=== PATIENT | female | born 2000 | race Caucasian/White ===

== ENCOUNTER 2021-01-08 07:55 | Emergency (ER) | payer BC, OTHER ==
[~2021-01-08] VITALS: Ht 175.2 cm; Wt 113.6 kg
[2021-01-08 08:17] LABS: BILIRUBIN,URINE NEGATIVE (NEGATIVE); CLARITY,URINE CLEAR; COLOR,URINE YELLOW; GLUCOSE, URINE (UA) NEGATIVE (NEGATIVE); KETONES,URINE NEGATIVE (NEGATIVE); LEUKOCYTE ESTERASE ,URINE NEGATIVE (NEGATIVE); NITRITE,URINE NEGATIVE (NEGATIVE); PH,URINE 5.5 (5-9); PROTEIN,URINE NEGATIVE (NEGATIVE)
[2021-01-08 08:19] LABS: BACTERIA,URINE NEGATIVE /HPF; SQUAMOUS EPITHELIAL CELL,UR 0-2 /HPF
[2021-01-08] MEDS ORDERED: LACTATED RINGERS 1,000 ML IV ONE (08:30)
[2021-01-08] MEDS ORDERED: fentaNYL INJ 100 MCG/2 ML AMP IVP ONE (08:45)
[2021-01-08] MEDS ORDERED: ONDANSETRON 4 MG/2 ML (SDV) Z0FRAN IVP ONE (08:45)
[2021-01-08 08:51] LABS: BASOPHILS # (AUTO) 0.1 10^3/uL (0.0-0.1); BASOPHILS % (AUTO) 1 % (0-10); EOSINOPHILS # (AUTO) 0.4 10^3/uL (0.0-0.3); EOSINOPHILS % (AUTO) 4 % (0-10); HEMATOCRIT 42 % (35-52); HEMOGLOBIN 14.1 g/dL (11.5-16.0); LYMPHOCYTES # (AUTO) 2.7 10^3/uL (1.0-4.0); LYMPHOCYTES % (AUTO) 26 % (12-44); MEAN CORPUSCULAR HEMOGLOBIN 29 pg (25-34); MEAN CORPUSCULAR HGB CONC 34 g/dL (32-36); MEAN CORPUSCULAR VOLUME 87 fL (80-99); MEAN PLATELET VOLUME 10.7 fL (9.0-12.2); MONOCYTES # (AUTO) 0.8 10^3/uL (0.0-1.0); MONOCYTES % (AUTO) 8 % (0-12); NEUTROPHILS # (AUTO) 6.2 10^3/uL (1.8-7.8); NEUTROPHILS % (AUTO) 61 % (42-75); PLATELET COUNT 328 10^3/uL (130-400); WHITE BLOOD COUNT 10.2 10^3/uL (4.3-11.0)
--- NOTE | 2021-01-08 08:52 | ED Abdominal Pain ---
General Chief Complaint: Abdominal/GI Problems Stated Complaint: ABD PAIN Nursing Triage Note: AMB TO ROOM C/O LOW ABD PAIN ONSET 3 DAYS AGO. FOR APX 1 MONTH HAS NOTICED BLOOD I HER STOOL. APX 1TO 2 YEARS AGO HAD COLONSOCOPY AT [facility] WAS TOLD SHE HAD ULCERATIVE COLITIS WAS TO FOLLOW UP BUT NEVER DID. Sepsis Screen: No Definite Risk Source of Information: Patient Exam Limitations: No Limitations (DINORAHJangl SMS) History of Present Illness Date Seen by Provider: Jan 08, 2021 Time Seen by Provider: 08:35 Initial Comments Jeremias is a 20 y/o female that present to ER via private vehicle due to 4 days of increased abdominal pain. She states the abdominal pain is dull to sharp, 4/10 and located in the lower abdomen L>R. She was dx with ulcerative colitis at [place] 2 years ago and did not follow up. She recalls being prescribed enemas for the colitis, but no longer is taking. HX of constipation. She states since her dx she has had intermittent abdominal pain that was managed with Tylenol, NSAIDS and hydrocodone. She has had blood in her stool for the last two years but has noticed an increased amount starting 2 weeks ago. She has no radiation of pain. Positive for nausea and one episode of vomiting. Denies dizziness, SOB, Chest pain, dysuria, and F/C at this time. No surgical hx. Mother was dx with Crohns in her 20s. She does not see a PCP and is currently not being treated for any other medical conditions. She has not had anything to eat or drink today. Timing/Duration: 1/2 Hour Severity/Quality: Mild Location: RLQ, LLQ Radiation: No Radiation Activities at Onset: None Associated Symptoms: Nausea/Vomiting ([facility] Allergies and Home Medications Allergies Coded Allergies: No Known Drug Allergies (Unverified , 01/08/21) Home Medications Mesalamine 4 Gm/60 Ml Enema, 4 GM RC HS Prescribed by: THONY CHAPA on 01/08/21 1024 Ondansetron 4 Mg Tab.rapdis, 4 MG PO Q6H PRN for NAUSEA/VOMITING Prescribed by: THONY CHAPA on 01/08/21 1024 Patient Home Medication List Home Medication List Reviewed: Yes (THONY CHAPA) Review of Systems Review of Systems Constitutional: no symptoms reported EENTM: No Symptoms Reported Respiratory: No Symptoms Reported Cardiovascular: No Symptoms Reported Gastrointestinal: Abdominal Pain, Blood Streaked Stools, Nausea, Rectal Bleeding, Vomiting Genitourinary: No Symptoms Reported Musculoskeletal: no symptoms reported Skin: no symptoms reported Psychiatric/Neurological: No Symptoms Reported Endocrine: No Symptoms Reported Hematologic/Lymphatic: No Symptoms Reported (DINORAH,[facility] [employer]) Past Ybawwul-Woxbfg-Mszwuz Hx Patient Social History Alcohol Use: Denies Use Smoking Status: Current Everyday Smoker Type Used: Electronic/Vapor Recent Infectious Disease Expo: No (DINORAH,[facility] [employer]) Past Medical History Surgeries: No Respiratory: No Cardiac: No Neurological: No Genitourinary: No Gastrointestinal: Yes Colitis Musculoskeletal: No Endocrine: No HEENT: No Cancer: No Psychosocial: No Integumentary: No (DINORAH,[facility]) Physical Exam Vital Signs Vital Signs - First Documented 01/08/21 07:59 Temp 36.4 Pulse 88 Resp 18 B/P (MAP) 143/100 (114) Pulse Ox 99 O2 Delivery Room Air (THONY CHAPA) Vital Signs Capillary Refill : Less Than 3 Seconds (DINORAH,[facility]) Height/Weight/BMI Height: '" Weight: lbs. oz. kg; 37.00 BMI Method: General Appearance: mild distress Neck: non-tender, full range of motion Respiratory: chest non-tender, no respiratory distress, no accessory muscle use Cardiovascular: normal peripheral pulses, regular rate, rhythm Peripheral Pulses: 2+ Radial Pulses (R), 2+ Radial Pulses (L) Gastrointestinal: soft; No distended, No guarding; tenderness (LLQ and RLQ, L >R) Extremities: no pedal edema, no calf tenderness Neurologic/Psychiatric: alert, oriented x 3 Skin: normal color Exam Comments Negative for [employer] punch. Tenderness to LLQ and RLQ with light and deep palpation. (DINORAH,[facility] [employer]) Progress/Results/Core Measures Results/Orders Lab Results Laboratory Tests Test 01/08/21 08:04 01/08/21 08:42 Range/Units Urine Color YELLOW Urine Clarity CLEAR Urine pH 5.5 5-9 Urine Specific [place] 1.025 H 1.016-1.022 Urine Protein NEGATIVE NEGATIVE Urine Glucose (UA) NEGATIVE NEGATIVE Urine Ketones NEGATIVE NEGATIVE Urine Nitrite NEGATIVE NEGATIVE Urine Bilirubin NEGATIVE NEGATIVE Urine Urobilinogen 0.2 < = 1.0 MG/DL Urine Leukocyte Esterase NEGATIVE NEGATIVE Urine RBC (Auto) NEGATIVE NEGATIVE Urine RBC NONE /HPF Urine WBC NONE /HPF Urine Squamous Epithelial Cells 0-2 /HPF Urine Crystals NONE /LPF Urine Bacteria NEGATIVE /HPF Urine Casts NONE /LPF Urine Mucus NEGATIVE /LPF Urine Culture Indicated NO White Blood Count 10.2 4.3-11.0 10^3/uL Red Blood Count 4.81 3.80-5.11 10^6/uL Hemoglobin 14.1 11.5-16.0 g/dL Hematocrit 42 35-52 % Mean Corpuscular Volume 87 80-99 fL Mean Corpuscular Hemoglobin 29 25-34 pg Mean Corpuscular Hemoglobin Concent 34 32-36 g/dL Red Cell Distribution Width 12.9 10.0-14.5 % Platelet Count 328 130-400 10^3/uL Mean Platelet Volume 10.7 9.0-12.2 fL Immature Granulocyte % (Auto) 0 % Neutrophils (%) (Auto) 61 42-75 % Lymphocytes (%) (Auto) 26 12-44 % Monocytes (%) (Auto) 8 0-12 % Eosinophils (%) (Auto) 4 0-10 % Basophils (%) (Auto) 1 0-10 % Neutrophils # (Auto) 6.2 1.8-7.8 10^3/uL Lymphocytes # (Auto) 2.7 1.0-4.0 10^3/uL Monocytes # (Auto) 0.8 0.0-1.0 10^3/uL Eosinophils # (Auto) 0.4 H 0.0-0.3 10^3/uL Basophils # (Auto) 0.1 0.0-0.1 10^3/uL Immature Granulocyte # (Auto) 0.0 0.0-0.1 10^3/uL Sodium Level 139 135-145 MMOL/L Potassium Level 4.0 3.6-5.0 MMOL/L Chloride Level 105 98-107 MMOL/L Carbon Dioxide Level 24 21-32 MMOL/L Anion Gap 10 5-14 MMOL/L Blood Urea Nitrogen 13 7-18 MG/DL Creatinine 0.76 0.60-1.30 MG/DL Estimat Glomerular Filtration Rate > 60 BUN/Creatinine Ratio 17 Glucose Level 98 70-105 MG/DL Calcium Level 9.5 8.5-10.1 MG/DL Corrected Calcium 9.6 8.5-10.1 MG/DL Total Bilirubin 0.8 0.1-1.0 MG/DL Aspartate Amino Transf (AST/SGOT) 21 5-34 U/L Alanine Aminotransferase (ALT/SGPT) 23 0-55 U/L Alkaline Phosphatase 60 40-136 U/L C-Reactive Protein High Sensitivity 0.56 H 0.00-0.50 MG/DL Total Protein 7.5 6.4-8.2 GM/DL Albumin 3.9 3.2-4.5 GM/DL Lipase 38 8-78 U/L (THONY CHAPA) My Orders Orders - THONY CHAPA Ua Culture If Indicated (01/08/21 07:57) Urine Bedside (01/08/21 07:57) Cbc With Automated Diff (01/08/21 08:27) Comprehensive Metabolic Panel (01/08/21 08:27) Hs C Reactive Protein (01/08/21 08:27) Lipase (01/08/21 08:27) Ed Iv/Invasive Line Start (01/08/21 08:27) Lactated Ringers (Lr 1000 Ml Iv Solution (01/08/21 08:30) Ct Abdomen/Pelvis W (01/08/21 08:36) Fentanyl Inj (Sublimaze Injection) (01/08/21 08:45) Ondansetron Injection (Zofran Injectio (01/08/21 08:45) Iohexol Injection (Omnipaque 350 Mg/Ml 1 (01/08/21 09:00) Received Contrast (Hold Metformin- Contr (01/08/21 09:00) Sodium Chloride Flush (Catheter Flush Sy (01/08/21 09:00) Ns (Ivpb) (Sodium Chloride 0.9% Ivpb Bag (01/08/21 09:00) (THONY CHAPA) Medications Given in ED Current Medications Medications Dose Ordered Sig/Ariane Route Start Time Stop Time Status Last Admin Dose Admin Fentanyl Citrate 50 mcg ONCE ONCE IVP 01/08/21 08:45 01/08/21 08:46 DC 01/08/21 08:46 50 MCG Iohexol 100 ml ONCE ONCE IV 01/08/21 09:00 01/08/21 09:06 DC 01/08/21 09:37 100 ML Lactated Ringer's 1,000 ml @ 0 mls/hr Q0M ONCE IV 01/08/21 08:30 01/08/21 08:31 DC 01/08/21 08:41 1,000 MLS/HR Ondansetron HCl 4 mg ONCE ONCE IVP 01/08/21 08:45 01/08/21 08:46 DC 01/08/21 08:45 4 MG Sodium Chloride 10 ml NEEDED PRN IV 01/08/21 09:00 01/08/21 10:53 DC 01/08/21 09:37 10 ML Sodium Chloride 100 ml ONCE ONCE IV 01/08/21 09:00 01/08/21 09:06 DC 01/08/21 09:37 80 ML (THONY CHAPA) Vital Signs/I&O 01/08/21 01/08/21 07:59 10:30 Temp 36.4 Pulse 88 72 Resp 18 18 B/P (MAP) 143/100 (114) 120/66 Pulse Ox 99 94 O2 Delivery Room Air Room Air (THONY CHAPA) Blood Pressure Mean: 114 Progress Progress Note : Time: 08:35 Progress Note CBC, CMP, Lipase, UA, B-HCG, and will obtain a CT of the abdomen and Pelvis. Start IV fluids, fentanyl for pain and Zofran for nausea. Ddx colitis, perforation, colon cancer, pathology. Once labs and imaging are done will ree valuate patient and determine next steps in management. ([facility]) Progress Note #1: Progress Note I attest that I saw this patient alongside the medical student and agree with his documented history, physical exam and review of systems except as otherwise noted. Plan to get a CT of the abdomen to rule out significant surgical disease. Her labs look fine there is no anemia and her urine is fine. If there is no evidence of anything surgical then we will plan to put her on mesalamine Progress Note #2: Time: 10:22 Progress Note Proctitis but likely related to her ulcerative colitis. Plan to put her on mesalamine enemas and follow-up with the glass enamel mixer with some nausea medicine and return precautions. Patient is okay with this plan (THONY CHAPA) Diagnostic Imaging Diagonstic Imaging: CT Plain Films/CT/US/NM/MRI: abdomen, pelvis Comments [facility]. [place], [place] NAME: JEREMIAS NG [facility] REC#: [id number] PT STATUS: REG ER : 2000 PHYSICIAN: THONY CHAPA MD ADMIT DATE: 01/08/21/ER Draft Date of Exam:01/08/21 CT ABDOMEN/PELVIS W EXAMINATION: CT Abdomen and Pelvis with intravenous contrast. TECHNIQUE: Multiple contiguous axial images were obtained through the abdomen and pelvis after the uneventful administration of intravenous contrast. All CT scans use one or more of the following dose optimizing techniques: automated exposure control, MA and/or KvP adjustment based on a patient size and exam type, or iterative reconstruction. HISTORY: Ulcerative colitis, bloody stool. COMPARISON: None available. FINDINGS: Limited views of the lower thorax are unremarkable. The liver is normal without focal lesion. There is no biliary ductal dilation. Gallbladder is normal. Pancreas is normal. Spleen is normal. Adrenal glands are normal. The kidneys are normal. There is no hydronephrosis. Urinary bladder is normal. Uterus and ovaries are normal for age. Visualized bowel is normal in caliber without obstruction or inflammation. No bowel wall thickening or pericolonic stranding. No abscess. No free fluid or air. No abdominal or pelvic lymphadenopathy. Aorta is normal in caliber without aneurysm. There are no suspicious osseus lesions. IMPRESSION: No acute abnormality in the abdomen or pelvis. Dictated on workstation # [id number] Dict: 01/08/21 0941 Trans: 01/08/21 0944 [id number] Interpreted by: LINDA SPENCER MD Electronically signed by: Reviewed: Reviewed by Me (THONY CHAPA) Consults : Consulting Physician: BETY BROWER DO Consults Notes Dr. Brower, general surgery reviewed imaging with us and agrees the rectum does seem to be inflamed although there is no evidence of abscess, fistula or other surgical intervention indicated. He agrees with mesalamine and follow-up with gastroenterology (THONY CHAPA) Departure Impression Primary Impression: Ulcerative colitis confined to rectum Disposition: 01 HOME, SELF-CARE Condition: Stable Departure-Patient Inst. Decision time for Depature: 09:54 (THONY CHAPA) Referrals: NO,LOCAL PHYSICIAN (PCP/Family) Primary Care Physician Patient Instructions: Diet for Ulcerative Colitis, Ulcerative Colitis (DC) Add. Discharge Instructions: Avoid NSAIDs such as Motrin, ibuprofen, Advil, Aleve, naproxen/Naprosyn. Tylenol 1000 mg every 8 hours as necessary for pain. Zofran 1 tablet under the tongue every 6 hours as necessary for nausea or vomiting. Mesalamine enema placed rectally and held overnight at least 8 hours every day. Once your symptoms are under control you can do the enema every 3 days for maintenance. Call your glass enamel mixer and make a follow-up appointment in the next 2 to 4 weeks. Return to the ER for significantly intractable pain, nausea or other worrisome symptoms. All discharge instructions reviewed with patient and/or family. Voiced understanding. Scripts Ondansetron (Ondansetron Odt) 4 Mg Tab.rapdis 4 MG PO Q6H PRN for NAUSEA/VOMITING, #12 TAB 0 Refills Prov: THONY CHAPA 01/08/21 Mesalamine (Mesalamine) 4 Gm/60 Ml Enema 4 GM RC HS for 14 Days, #14 EA 0 Refills Prov: THONY CHAPA 01/08/21 Work/School Note: Work Release Form Date Seen in the Emergency Department: Jan 08, 2021 Return to Work: Jan 10, 2021 [facility] Jan 08, 2021 08:52 THONY CHAPA Jan 08, 2021 09:18
[2021-01-08 08:57] LABS: ALBUMIN 3.9 GM/DL (3.2-4.5); CHLORIDE 105 MMOL/L (98-107); SODIUM 139 MMOL/L (135-145)
[2021-01-08 08:58] LABS: CALCIUM 9.5 MG/DL (8.5-10.1)
[2021-01-08 08:59] LABS: GLUCOSE 98 MG/DL (70-105); TOTAL PROTEIN 7.5 GM/DL (6.4-8.2)
[2021-01-08 09:00] LABS: CARBON DIOXIDE 24 MMOL/L (21-32)
[2021-01-08] MEDS ORDERED: CATHETER FLUSH 10 ML SYR IV PRN (09:00)
[2021-01-08] MEDS ORDERED: HOLD METFORMIN - RECEIVED CONTRAST 20 ML VIAL IV SCH (09:00)
[2021-01-08] MEDS ORDERED: NS 100 ML (IVPB) BAG IV ONE (09:00)
[2021-01-08] MEDS ORDERED: IOHEXOL 350 MG/ML 100 ML (OMNIPAQUE 350) VIAL IV ONE (09:00)
[2021-01-08 09:01] LABS: BILIRUBIN,TOTAL 0.8 MG/DL (0.1-1.0)
[2021-01-08 09:03] LABS: ALKALINE PHOSPHATASE 60 U/L (40-136); CREATININE SERUM 0.76 MG/DL (0.60-1.30); GFR ESTIMATED > 60
[2021-01-08 09:04] LABS: BUN/CREATININE RATIO 17
[2021-01-08 09:06] LABS: ALANINE AMINOTRANSFERASE 23 U/L (0-55); LIPASE 38 U/L (8-78)
--- NOTE | 2021-01-08 09:45 | Diagnostic Imaging Report ---
EXAMINATION: CT Abdomen and Pelvis with intravenous contrast. TECHNIQUE: Multiple contiguous axial images were obtained through the abdomen and pelvis after the uneventful administration of intravenous contrast. All CT scans use one or more of the following dose optimizing techniques: automated exposure control, MA and/or KvP adjustment based on a patient size and exam type, or iterative reconstruction. HISTORY: Ulcerative colitis, bloody stool. COMPARISON: None available. FINDINGS: Limited views of the lower thorax are unremarkable. The liver is normal without focal lesion. There is no biliary ductal dilation. Gallbladder is normal. Pancreas is normal. Spleen is normal. Adrenal glands are normal. The kidneys are normal. There is no hydronephrosis. Urinary bladder is normal. Uterus and ovaries are normal for age. Visualized bowel is normal in caliber without obstruction or inflammation. No bowel wall thickening or pericolonic stranding. No abscess. No free fluid or air. No abdominal or pelvic lymphadenopathy. Aorta is normal in caliber without aneurysm. There are no suspicious osseus lesions. IMPRESSION: No acute abnormality in the abdomen or pelvis. Dictated by: Dictated on workstation # [id number]
[2021-01-08] MEDS ORDERED: ONDA4TAB11 PO (10:24)
[2021-01-08] MEDS ORDERED: MESA4ENE4 RC (10:24)
[2021-01-08 10:30] VITALS: BP 120/66
== END 2021-01-08 10:30 | disposition home or self-care (01) ==
LOC: ER 07:59
DX: K51.80 Other ulcerative colitis without complications (principal); F17.290 Nicotine dependence, other tobacco product, uncomplicated
CPT/HCPCS: 36415; 74177; 80053; 81000; 83690; 84703; 85025; 86141

== ENCOUNTER 2021-03-08 05:31 | Outpatient (RCR) | payer BC, OTHER ==
[~2021-03-08] VITALS: Ht 175.3 cm; Wt 104.0 kg
[~2021-03-08 05:31] MED LIST: ACHD5005 PO; MESA4ENE4 RC; ONDA4TAB11 PO; PANT40GR PO
== END 2021-03-08 13:05 | disposition home or self-care (01) ==
LOC: PREOP 05:31
PROVIDERS: ATTEND Surgery
DX: Z01.812 Encounter for preprocedural laboratory examination (principal); K92.1 Melena; Z20.822 Contact with and (suspected) exposure to COVID-19
CPT/HCPCS: 87635

== ENCOUNTER 2021-03-12 11:55 | Day surgery (SDC) | payer BC, OTHER ==
[~2021-03-12] VITALS: Ht 175 cm; Wt 141.0 kg
[2021-03-12] MEDS ORDERED: LACTATED RINGERS 1,000 ML IV STA (12:09)
[2021-03-12] MEDS ORDERED: LACTATED RINGERS 1,000 ML IV ONE (12:14)
[2021-03-12 12:15] VITALS: BP 110/66
[2021-03-12] MEDS ORDERED: HURRICAINE EXT TUBE (BENZOCAINE) XX PRN (12:15)
--- NOTE | 2021-03-12 12:22 | Progress Note-Pre Operative ---
Pre-Operative Progress Note H&P Reviewed The H&P was reviewed, patient examined and no changes noted. Time Seen by Provider: 12:20 Date H&P Reviewed: Mar 12, 2021 Time H&P Reviewed: 12:20 Pre-Operative Diagnosis: blood in stool, hematemesis BETY BROWER DO Mar 12, 2021 12:22
[2021-03-12] MEDS ORDERED: MIDAZOLAM 2 MG/2 ML (VERSED) VIAL ONE (12:48)
[2021-03-12] MEDS ORDERED: PROPOFOL INJECTION 50 ML IV ONE ×2 (12:48→12:59)
[2021-03-12 13:20] VITALS: BP 101/59
[2021-03-12 13:25] VITALS: BP 107/64
--- NOTE | 2021-03-12 13:29 | Progress Note-Post Operative ---
Post-Operative Progess Note Surgeon (s)/Payroll And Benefits Manager (s) Surgeon BETY BROWER DO Payroll And Benefits Manager: none Pre-Operative Diagnosis blood in stool, hematemesis Post-Operative Diagnosis Gastritis polyp rectal ulcer int hemorrhoids Procedure & Operative Findings Date of Procedure 03/12/21 Procedure Performed/Findings 1. EGD with bx 2. Colon with snare 3. Colon with cold bx PROCEDURE NOTE: After informed consent was obtained, the patient was brought to the endoscopy suite, placed in bed in left lateral decubitus position. She was administered IV sedation by the RAMP LEAD who then monitored her vitals the entire time, heart rate, blood pressure and pulse ox, started with the EGD, placed the scope down the mouth through the esophagus into the stomach, noted some mild Gastritis, took a picture, pushed into the duodenum. Duodenum looked normal. Pulled back and did a biopsy of the antrum as well as biopsy of body of stomach, retroflexed the scope. She did not have a hiatal hernia; pulled the scope into the GE junction, did a biopsy here and then pushed the scope back into the stomach and suctioned all the air out, then pulled the scope up the esophagus and out the mouth. Switched camera, switched gloves, went down below, started the colonoscopy. Pushed all the way to the cecum about 150 cm in, took a picture of the appendiceal orifice and noted the ileo-cecal valve. Then slowly withdrew the scope i nsufflating to look circumferentially at the lind looking at the cecum, up the ascending colon too the hepatic flexure, down the transverse colon, to the splenic flexure, into the descending colon down into the sigmoid and finally into the rectum. Saw a polyp in the rectum and did a snare polypectomy; to remove it completely. On the way in in the rectum saw an ulcer and had taken a picture of it. Elected to do cold biopsies of the edge of the ulcer. I did not want to make the ulcer worse; therefore, I did not retroflex in the rectal vault, but I was able to see some minimal internal hemorrhoids and took a picture. Then removed the scope. The patient tolerated the procedure. She was recovered in endoscopy suite. Anesthesia Type IV sedation by RAMP LEAD Estimated Blood Loss Estimated blood loss (mL): scant Specimens/Packing Specimens Removed antral bx body of stomach bx GE jxn bx rectal polyp rectal ulcer bx BETY BROWER DO Mar 12, 2021 13:29
[2021-03-12 13:30] VITALS: BP 109/66
--- NOTE | 2021-03-12 13:30 | Endoscopy Discharge Instruct ---
Endo Procedure/Findings Findings 1.: Gastritis 2.: Polyp 3.: Other Findings (Rectal ulcer) 4.: Internal Hemorrhoids Discharge Instructions - Activity: You might feel a little sleepy until tomorrow. This is due to the medicine you received to relax you. Until tomorrow, you should: NOT drive a car, operate machinery or power tools. NOT drink any alcoholic beverages. NOT make any important decisions or sign importortant papers. Do not return to work until tomorrow, unless otherwise instructed. Resume previous activities tomorrow. Diet: Start by taking liquids. If you tolerate liquids, advance to solid food. 1.: EGD in 3 years 2.: Other Recommendation (Colon in 6 months) Notify Physician - If you experience excessive bleeding, unusual abdominal pain, fever, or chest pain, contact your doctor immediately. BETY BROWER DO Mar 12, 2021 13:30
--- NOTE | 2021-03-12 13:32 | Anesthesia-General Post-Op ---
MAC Patient Condition Mental Status/LOC: Same as Preop Cardiovascular: Satisfactory Nausea/Vomiting: Absent Respiratory: Satisfactory Pain: Controlled Complications: Absent Post Op Complications Complications None Follow Up Care/Instructions Patient Instructions None needed. Anesthesiology Discharge Order Discharge Order Patient is doing well, no complaints, stable vital signs, no apparent adverse anesthesia problems. No complications reported per nursing. FIOR MELENDEZ CRNA Mar 12, 2021 13:32
[2021-03-12 13:35] VITALS: BP 109/66
[2021-03-12 14:12] VITALS: BP 110/65
== END 2021-03-12 14:25 | disposition home or self-care (01) ==
LOC: ENDO 11:55
PROVIDERS: ATTEND Surgery
DX: K92.1 Melena (principal); K29.50 Unspecified chronic gastritis without bleeding; K92.0 Hematemesis; K64.8 Other hemorrhoids; K62.6 Ulcer of anus and rectum; E66.01 Morbid (severe) obesity due to excess calories; Z68.42 Body mass index [BMI] 45.0-49.9, adult; Z79.899 Other long term (current) drug therapy
CPT/HCPCS: 84703; 88305

== ENCOUNTER 2021-12-19 08:06 | Emergency (ER) | payer OTHER ==
[~2021-12-19] VITALS: Ht 175 cm; Wt 122.0 kg
--- NOTE | 2021-12-19 08:43 | ED Abdominal Pain ---
General Chief Complaint: Abdominal/GI Problems Stated Complaint: ABD PAIN - BLOOD IN STOOL Nursing Triage Note: PT AMB TO RM 7 W CO OF ABD PAIN, SHARP PAIN STARTED THIS AM, STATES HAD DIARRHEA, THEN HAD BLOOD IN STOOL, PT STATES HAS HX ULCERATIE COLOITIS. PT STATES LAST FLARE UP 2-3 MONTHS AGO. PT RATES PAIN 5/10. PT CO OF NAUSEA AT THIS X Source of Information: Patient Exam Limitations: No Limitations (RAGINI GLYNN MED STUDENT) History of Present Illness Date Seen by Provider: Dec 19, 2021 Time Seen by Provider: 08:25 Initial Comments Mrs. Renteria is a 21yo female with PMH of UC that presents to ED today due to abdominal pain and blood in her stool. Her UC is followed by Dr. Brower and her last colonoscopy was about a year ago. She is due for another one in a couple of months. Woke up this morning with sharp stomach pain. Rates about a 4 or 5 right now. Located in the LLQ, there is some milder pain in the suprapubic area as well. She had a bout of diarrhea shortly after wakening with this pain. After this, she had the urge to have another bowel movement but it was just blood, states she has episodes like this but this is more blood than usual. Last UC flar was 2-3 months ago. She does not take any medication for UC, has not taken any medications today. She is also feeling nauseas and a bit lightheaded. Denies fever, chills, dysuria, or any other symptoms. (RAGINI GLYNN MED STUDENT) Initial Comments Jennifer is not on any maintenance medications for her ulcerative colitis. She has not treated any of her prior flares with steroids or antibiotics. She was supposed to follow-up with Dr. Brower for gallbladder ultrasound and further consultation after endoscopy. She did not follow through because of loss of insurance. (ABISAI GRANADOS MD) Allergies and Home Medications Allergies Coded Allergies: No Known Drug Allergies (Unverified , 01/08/21) Patient Home Medication List Home Medication List Reviewed: Yes (ABISAI GRANADOS MD) Hydrocodone/Acetaminophen (Hydrocodone-Acetamin 5-325 mg) 1 Each Tablet, 1 TAB PO Q4H PRN for PAIN-MODERATE (5-7) Prescribed by: ABISAI PERDOMO on 12/19/21 1100 Omeprazole (Omeprazole) 20 Mg Tablet.dr, 20 MG PO DAILY Prescribed by: ABISAI PERDOMO on 12/19/21 105 Ondansetron (Ondansetron Odt) 4 Mg Tab.rapdis, 4 MG SL Q4H PRN for NAUSEA/VOMITING Prescribed by: ABISAI PERDOMO on 12/19/21 1059 Prednisone (Prednisone) 10 Mg Tab.ds.pk, 1 TAB PO UD Prescribed by: ABISAI PERDOMO on 12/19/21 1059 Review of Systems Review of Systems Constitutional: No chills, No fever EENTM: No Blurred Vision, No Double Vision Respiratory: Denies Cough, Denies Shortness of Air, Denies Wheezing Cardiovascular: Denies Chest Pain; Lightheadedness; Denies Palpitations Gastrointestinal: Abdominal Pain (LLQ, superpubic); Denies Constipated; Diarrhea, Nausea, Rectal Bleeding; Denies Vomiting Genitourinary: Denies Burning, Denies Flank Pain, Denies Hematuria Musculoskeletal: No joint pain, No joint swelling Skin: No lesions, No rash Psychiatric/Neurological: Denies Headache, Denies Numbness (RAGINI GLYNN eFuneral STUDENT) Past [id number] Hx Patient Social History Use of E-Cig and/or Vaping dev: Yes E-Cig or Vaping type used: Nicotine Use of E-Cig and/or Vaping Melo: Current Everyday User Substance use?: No Alcohol Use?: No Pt feels they are or have been: No (RAGINI GLYNN eFuneral STUDENT) Seasonal Allergies Seasonal Allergies: No (RAGINI GLYNN STUDENT) Past Medical History Surgeries: No (WISDOM TEETH CHILD.) Respiratory: No Cardiac: No Neurological: No Expected Date of Delivery: Nov 19, 2021 Female Reproductive Disorders: Denies Sexually Transmitted Disease: No HIV/AIDS: No Genitourinary: No Gastrointestinal: Yes Colitis Musculoskeletal: No Endocrine: No HEENT: No Cancer: No Psychosocial: No Integumentary: No (RAGINI GLYNN eFuneral STUDENT) Physical Exam Vital Signs Vital Signs - First Documented 12/19/21 12/19/21 08:20 11:11 Pulse 77 Resp 18 B/P (MAP) 139/74 (95) Pulse Ox 98 O2 Delivery Room Air (ABISAI GRANADOS MD) Vital Signs Capillary Refill : (RAGINI GLYNN MED STUDENT) Height/Weight/BMI Height: '" Weight: lbs. oz. kg; 39.00 BMI Method: General Appearance: WD/WN, no apparent distress, obese HEENT: PERRL/EOMI, pharynx normal Respiratory: chest non-tender, lungs clear, normal breath sounds Cardiovascular: normal peripheral pulses, regular rate, rhythm, no edema, no murmur Peripheral Pulses: 2+ Radial Pulses (R), 2+ Radial Pulses (L) Gastrointestinal: normal bowel sounds, soft, tenderness (LLQ, Superpubic) Extremities: non-tender, no pedal edema, no calf tenderness Neurologic/Psychiatric: alert, normal mood/affect, oriented x 3 Skin: normal color, warm/dry (RAGINI GLYNN MED STUDENT) Progress/Results/Core Measures Results/Orders Lab Results Laboratory Tests Test 12/19/21 08:23 12/19/21 08:37 Range/Units Urine Color YELLOW Urine Clarity CLEAR Urine pH 5.5 5-9 Urine Specific [place] 1.020 1.016-1.022 Urine Protein NEGATIVE NEGATIVE Urine Glucose (UA) NEGATIVE NEGATIVE Urine Ketones NEGATIVE NEGATIVE Urine Nitrite NEGATIVE NEGATIVE Urine Bilirubin NEGATIVE NEGATIVE Urine Urobilinogen 0.2 < = 1.0 MG/DL Urine Leukocyte Esterase NEGATIVE NEGATIVE Urine RBC (Auto) 2+ H NEGATIVE Urine RBC 0-2 /HPF Urine WBC NONE /HPF Urine Squamous Epithelial Cells 0-2 /HPF Urine Crystals NONE /LPF Urine Bacteria NEGATIVE /HPF Urine Casts NONE /LPF Urine Mucus NEGATIVE /LPF Urine Culture Indicated NO White Blood Count 9.1 4.3-11.0 10^3/uL Red Blood Count 5.07 3.80-5.11 10^6/uL Hemoglobin 14.6 11.5-16.0 g/dL Hematocrit 43 35-52 % Mean Corpuscular Volume 85 80-99 fL Mean Corpuscular Hemoglobin 29 25-34 pg Mean Corpuscular Hemoglobin Concent 34 32-36 g/dL Red Cell Distribution Width 13.3 10.0-14.5 % Platelet Count 339 130-400 10^3/uL Mean Platelet Volume 10.9 9.0-12.2 fL Immature Granulocyte % (Auto) 0 % Neutrophils (%) (Auto) 64 42-75 % Lymphocytes (%) (Auto) 27 12-44 % Monocytes (%) (Auto) 7 0-12 % Eosinophils (%) (Auto) 2 0-10 % Basophils (%) (Auto) 1 0-10 % Neutrophils # (Auto) 5.8 1.8-7.8 10^3/uL Lymphocytes # (Auto) 2.4 1.0-4.0 10^3/uL Monocytes # (Auto) 0.6 0.0-1.0 10^3/uL Eosinophils # (Auto) 0.2 0.0-0.3 10^3/uL Basophils # (Auto) 0.1 0.0-0.1 10^3/uL Immature Granulocyte # (Auto) 0.0 0.0-0.1 10^3/uL Erythrocyte Sedimentation Rate 17 0-20 MM/HR Sodium Level 141 135-145 MMOL/L Potassium Level 4.0 3.6-5.0 MMOL/L Chloride Level 106 98-107 MMOL/L Carbon Dioxide Level 20 L 21-32 MMOL/L Anion Gap 15 H 5-14 MMOL/L Blood Urea Nitrogen 8 7-18 MG/DL Creatinine 0.80 0.60-1.30 MG/DL Estimat Glomerular Filtration Rate 107 BUN/Creatinine Ratio 10 Glucose Level 99 70-105 MG/DL Calcium Level 9.5 8.5-10.1 MG/DL Corrected Calcium 9.6 8.5-10.1 MG/DL Magnesium Level 1.8 1.6-2.4 MG/DL Total Bilirubin 0.7 0.1-1.0 MG/DL Aspartate Amino Transf (AST/SGOT) 18 5-34 U/L Alanine Aminotransferase (ALT/SGPT) 25 0-55 U/L Alkaline Phosphatase 65 40-136 U/L C-Reactive Protein High Sensitivity 0.87 H 0.00-0.50 MG/DL Total Protein 7.9 6.4-8.2 GM/DL Albumin 3.9 3.2-4.5 GM/DL Lipase 28 8-78 U/L Serum Test, Qualitative NEGATIVE NEGATIVE (ABISAI GRANADOS MD) My Orders Orders - ABISAI GRANADOS MD Cbc With Automated Diff (12/19/21 08:39) Comprehensive Metabolic Panel (12/19/21 08:39) Hs C Reactive Protein (12/19/21 08:39) Hcg,Qualitative Serum (12/19/21 08:39) Magnesium (12/19/21 08:39) Erythrocyte Sedimentation Rate (12/19/21 08:39) Ed Iv/Invasive Line Start (12/19/21 08:39) Lactated Ringers (Lr 1000 Ml Iv Solution (12/19/21 08:45) Ondansetron Injection (Zofran Injectio (12/19/21 08:45) Promethazine Injection (Phenergan Injec (12/19/21 09:45) Fentanyl Inj (Sublimaze Injection) (12/19/21 09:45) Lipase (12/19/21 09:37) Ua Culture If Indicated (12/19/21 10:04) Hydrocodone/Apap 5/325 Tablet (Lortab 5 (12/19/21 11:00) (ABISAI GRANADOS MD) Medications Given in ED Current Medications Medications Dose Ordered Sig/Ariane Route Start Time Stop Time Status Last Admin Dose Admin Acetaminophen/ Hydrocodone Bitart 1 ea ONCE ONCE PO 12/19/21 11:00 12/19/21 11:01 DC 12/19/21 11:06 1 EA Fentanyl Citrate 50 mcg ONCE ONCE IVP 12/19/21 09:45 12/19/21 09:46 DC 12/19/21 09:45 50 MCG Lactated Ringer's 1,000 ml @ 0 mls/hr Q0M ONCE IV 12/19/21 08:45 12/19/21 08:46 DC 12/19/21 08:49 1,000 MLS/HR Ondansetron HCl 8 mg ONCE ONCE IVP 12/19/21 08:45 12/19/21 08:46 DC 12/19/21 08:49 8 MG Promethazine HCl 25 mg ONCE ONCE IVP 12/19/21 09:45 12/19/21 09:46 DC 12/19/21 09:44 25 MG (ABISAI GRANADOS MD) Vital Signs/I&O 12/19/21 12/19/21 08:20 11:11 Pulse 77 Resp 18 B/P (MAP) 139/74 (95) 115/68 Pulse Ox 98 O2 Delivery Room Air (ABISAI GRANADOS MD) Blood Pressure Mean: 95 Progress Progress Note : Progress Note Patient was hydrated with LR and treated with Zofran. She had refractory nausea and was treated with promethazine. Pain was treated with fentanyl. Labs were relatively unremarkable. I discussed the situation with Dr. Brower who recommended a month-long steroid taper. He advised her to follow-up in his clinic on Friday. He plans to refer to her gastroenterology for maintenance management of ulcerative colitis. (ABISAI GRANADOS MD) Departure Impression Primary Impression: Exacerbation of ulcerative colitis Qualified Codes: K51.919 - Ulcerative colitis, unspecified with unspecified complications Additional Impressions: Nausea & vomiting Qualified Codes: R11.2 - Nausea with vomiting, unspecified Hematochezia Disposition: HOME, SELF-CARE Condition: Improved Departure-Patient Inst. Decision time for Depature: 10:50 (ABISAI GRANADOS MD) Referrals: [facility] (PCP/Family) Primary Care Physician BETY BROWER DO Patient Instructions: Diet for Ulcerative Colitis, Ulcerative Colitis in Adults Add. Discharge Instructions: Start with a clear liquid diet and adhere to clear liquids for the remainder of today. Tomorrow you may gradually advance your diet with small quantities of bland food as tolerated. Additional information on diet for ulcerative colitis patients is attached. Please review the attached educational material. Use hydrocodone as prescribed for pain. Avoid use of NSAID medications such as Aleve, naproxen, Motrin, ibuprofen, etc. Avoid driving, use of machinery, or making important decisions while on hydrocodone. If you become constipated on hydrocodone, use a stool softener such as Colace. Use the prednisone taper as prescribed for treatment of the ulcerative colitis flare. Take prednisone early in the day to avoid sleep disturbance. Take with some food on your stomach if possible to avoid stomach irritation. May also be elena to take an antacid medication such as omeprazole to help protect your stomach while on steroids. Use the Zofran (ondansetron) as prescribed for nausea vomiting. Use Phenergan (promethazine) as previously prescribed for a backup nausea medication. Follow-up with Dr. Brower next week. Please call his office today to schedule an appointment. Please also schedule a follow-up appointment at [facility] or with the primary care provider of your choice. You should discuss referral to gastroenterology versus maintenance therapy of ulcerative colitis through your primary care provider. Call with questions or concerns. Return to the ER if you are having worsening symptoms. All discharge instructions reviewed with patient and/or family. Voiced u nderstanding. Scripts Omeprazole (Omeprazole) 20 Mg Tablet.dr 20 MG PO DAILY, #30 TAB Prov: ABISAI GRANADOS MD 12/19/21 Ondansetron (Ondansetron Odt) 4 Mg Tab.rapdis 4 MG SL Q4H PRN for NAUSEA/VOMITING, #10 TAB 1 Refill Prov: ABISAI GRANADOS MD 12/19/21 Hydrocodone/Acetaminophen (Hydrocodone-Acetamin 5-325 mg) 1 Each Tablet 1 TAB PO Q4H PRN for PAIN-MODERATE (5-7), #20 TAB Prov: ABISAI GRANADOS MD 12/19/21 Prednisone (Prednisone) 10 Mg Tab.ds.pk 1 TAB PO UD, #70 TAB 4 tablets daily for 1 week, then 3 tabs daily for 1 week, then 2 tabs daily for 1 week, then 1 tab daily for 1 week Prov: ABISAI GRANADOS MD 12/19/21 Medical Student Attestation and Attending Note: I have personally interviewed and examined this patient along with Ragini Glynn, MS 4. I have reviewed student documentation including history, physical, and assessments. I agree with the documentation except where otherwise noted. Exam: General: Alert, oriented, uncomfortable, well developed HEENT: Normocephalic and atraumatic Heart: Regular rate and rhythm without murmur Lungs: Clear to auscultation bilaterally with normal effort Abdomen: Soft, generalized tenderness throughout, nondistended, normal bowel sounds Neuropsych: Alert, oriented, no focal deficits Skin: Warm and dry without rashes (ABISAI GRANADOS MD) Copy Copies To 1: BETY BROWER DEREK MED STUDENT Dec 19, 2021 08:43 ABISAI GRANADOS MD Dec 19, 2021 10:51
[2021-12-19 08:45] LABS: BASOPHILS # (AUTO) 0.1 10^3/uL (0.0-0.1); BASOPHILS % (AUTO) 1 % (0-10); EOSINOPHILS # (AUTO) 0.2 10^3/uL (0.0-0.3); EOSINOPHILS % (AUTO) 2 % (0-10); HEMATOCRIT 43 % (35-52); HEMOGLOBIN 14.6 g/dL (11.5-16.0); LYMPHOCYTES # (AUTO) 2.4 10^3/uL (1.0-4.0); LYMPHOCYTES % (AUTO) 27 % (12-44); MEAN CORPUSCULAR HEMOGLOBIN 29 pg (25-34); MEAN CORPUSCULAR HGB CONC 34 g/dL (32-36); MEAN CORPUSCULAR VOLUME 85 fL (80-99); MEAN PLATELET VOLUME 10.9 fL (9.0-12.2); MONOCYTES # (AUTO) 0.6 10^3/uL (0.0-1.0); MONOCYTES % (AUTO) 7 % (0-12); NEUTROPHILS # (AUTO) 5.8 10^3/uL (1.8-7.8); NEUTROPHILS % (AUTO) 64 % (42-75); PLATELET COUNT 339 10^3/uL (130-400); WHITE BLOOD COUNT 9.1 10^3/uL (4.3-11.0)
[2021-12-19] MEDS ORDERED: ONDANSETRON 4 MG/2 ML (SDV) Z0FRAN IVP ONE (08:45)
[2021-12-19] MEDS ORDERED: LACTATED RINGERS 1,000 ML IV ONE (08:45)
[2021-12-19 08:58] LABS: ALBUMIN 3.9 GM/DL (3.2-4.5)
[2021-12-19 09:00] LABS: CALCIUM 9.5 MG/DL (8.5-10.1)
[2021-12-19 09:01] LABS: TOTAL PROTEIN 7.9 GM/DL (6.4-8.2)
[2021-12-19 09:02] LABS: BILIRUBIN,TOTAL 0.7 MG/DL (0.1-1.0)
[2021-12-19 09:04] LABS: CREATININE SERUM 0.8 MG/DL (0.60-1.30)
[2021-12-19 09:07] LABS: MAGNESIUM 1.8 MG/DL (1.6-2.4)
[2021-12-19 09:39] LABS: ERYTHROCYTE SEDIMENTATION RATE 17 MM/HR (0-20)
[2021-12-19] MEDS ORDERED: fentaNYL INJ 100 MCG/2 ML AMP IVP ONE (09:45)
[2021-12-19] MEDS ORDERED: PROMETHAZINE INJ 25 MG/ML (PHENERGAN) AMP IVP ONE (09:45)
[2021-12-19 10:13] LABS: BILIRUBIN,URINE NEGATIVE (NEGATIVE); CLARITY,URINE CLEAR; COLOR,URINE YELLOW; GLUCOSE, URINE (UA) NEGATIVE (NEGATIVE); KETONES,URINE NEGATIVE (NEGATIVE); LEUKOCYTE ESTERASE ,URINE NEGATIVE (NEGATIVE); NITRITE,URINE NEGATIVE (NEGATIVE); PH,URINE 5.5 (5-9); PROTEIN,URINE NEGATIVE (NEGATIVE)
[2021-12-19 10:49] LABS: BACTERIA,URINE NEGATIVE /HPF; RBC,URINE 0-2 /HPF; SQUAMOUS EPITHELIAL CELL,UR 0-2 /HPF
[2021-12-19] MEDS ORDERED: ACHD5005 PO (10:59)
[2021-12-19] MEDS ORDERED: ONDA4TAB11 SL (10:59)
[2021-12-19] MEDS ORDERED: OMEP20TA7 PO (10:59)
[2021-12-19] MEDS ORDERED: PRED10TA22 PO (10:59)
[2021-12-19] MEDS ORDERED: HYDROcodone/APAP 5 MG/325 MG (LORTAB) TAB PO ONE (11:00)
[2021-12-19 11:11] VITALS: BP 115/68
== END 2021-12-19 11:11 | disposition home or self-care (01) ==
LOC: EDUNIT# 08:06 → ER 08:07
DX: K51.90 Ulcerative colitis, unspecified, without complications (principal); R11.2 Nausea with vomiting, unspecified; K92.1 Melena; E66.9 Obesity, unspecified; F17.290 Nicotine dependence, other tobacco product, uncomplicated; Z68.39 Body mass index [BMI] 39.0-39.9, adult
CPT/HCPCS: 36415; 80053; 81000; 83690; 83735; 84703; 85025; 85652; 86141

== ENCOUNTER → 2021-12-31 | Outpatient (CLI) | payer OTHER ==
[~2021-12-31] MED LIST changes: +OMEP20TA7 PO; +ONDA4TAB11 SL; +PRED10TA22 PO
--- NOTE | 2021-12-31 09:57 | Diagnostic Imaging Report ---
PROCEDURE: US Gallbladder. TECHNIQUE: Multiple real-time grayscale images were obtained over the right upper quadrant in various projections. INDICATION: Epigastric pain. Liver is enlarged 18.6 cm. The portal vein is patent and shows normal direction of flow. No discrete liver mass is detected. Gallbladder is without stones or sludge. No wall thickening or biliary duct dilatation is seen. The pancreas was poorly visualized due to overlying bowel gas. Aorta is nonaneurysmal. IVC is patent. The right kidney is without calculi or hydronephrosis. There is no ascites. IMPRESSION: 1. Mild hepatomegaly. 2. No evidence of cholelithiasis or acute cholecystitis. Dictated by: Dictated on workstation # [id number]
== END ==
LOC: RAD 08:45
PROVIDERS: ATTEND Surgery
DX: R16.0 Hepatomegaly, not elsewhere classified (principal)
CPT/HCPCS: 76705

== ENCOUNTER → 2022-01-07 | Outpatient (CLI) | payer OTHER ==
[~2022-01-07] MED LIST changes: +CATHETER FLUSH 10 ML SYR IVP PRN
--- NOTE | 2022-01-07 13:13 | Diagnostic Imaging Report ---
INDICATION: Pain. COMPARISON: Ultrasound dated December 31, 2021. RADIOPHARMACEUTICAL: 4.96 mCi Tc-99m Choletec IV TECHNIQUE: Anterior dynamic imaging for 1 hour after intravenous injection of radiopharmaceutical. Additional 60 minutes of imaging was performed after the patient ingested an 8-ounce can of Ensure Plus. FINDINGS: There is homogenous uptake throughout the liver. The gallbladder is visualized at 15 minutes and small bowel at 70 minutes. After the patient ingested an 8-ounce can of Ensure Plus, the gallbladder ejection fraction was calculated to be 57%, which is within normal limits. Additionally, the patient did not experience pain during this time. IMPRESSION: 1. Normal HIDA Scan without evidence of cystic or common duct obstruction. 2. Normal GBEF of 57%. Dictated by: Dictated on workstation # [id number]
== END ==
LOC: CARD 10:00
PROVIDERS: ATTEND Surgery
DX: R10.13 Epigastric pain (principal)
CPT/HCPCS: 78227; A9537

== ENCOUNTER 2022-01-18 11:19 | Outpatient (CLI) | payer SELFPAY ==
[~2022-01-18] VITALS: Ht 175.3 cm; Wt 124.7 kg
[~2022-01-18 11:19] MED LIST changes: -CATHETER FLUSH 10 ML SYR IVP PRN; +OMEP20TA56 PO; -OMEP20TA7 PO
== END 2022-01-18 14:10 | disposition home or self-care (01) ==
LOC: PREOP 11:19
PROVIDERS: ATTEND Surgery
DX: Z01.818 Encounter for other preprocedural examination (principal)

== ENCOUNTER 2022-01-21 10:55 | Day surgery (SDC) | payer OTHER ==
[~2022-01-21] VITALS: Ht 175.3 cm; Wt 124.7 kg
[2022-01-21] MEDS ORDERED: LACTATED RINGERS 1,000 ML IV STA (11:05)
[2022-01-21 11:15] VITALS: BP 113/67
--- NOTE | 2022-01-21 11:30 | Progress Note-Pre Operative ---
Pre-Operative Progress Note H&P Reviewed The H&P was reviewed, patient examined and no changes noted. Time Seen by Provider: 11:28 Date H&P Reviewed: January 21, 2022 Time H&P Reviewed: : Pre-Operative Diagnosis: UC, rectal bleed BETY BROWER DO January 21, 2022 11:30
--- NOTE | 2022-01-21 12:44 | Progress Note-Post Operative ---
Post-Operative Progess Note Surgeon (s)/Shade Bander (s) Surgeon BETY BROWER DO Shade Bander: none Pre-Operative Diagnosis UC, rectal bleed Post-Operative Diagnosis rectal ulcers int hemorrhoids Procedure & Operative Findings Date of Procedure 01/21/22 Procedure Performed/Findings Colon with cold bx PROCEDURE NOTE: After informed consent was obtained, the patient was brought to the endoscopy suite, placed in bed in left lateral decubitus position. She was administered IV sedation by the SENIOR CENTER DIRECTOR who then monitored her vitals the entire time, heart rate, blood pressure and pulse ox and the scope was inserted, pushed all the way to about 130 cm and pushed into the cecum, took a picture of appendiceal orifice and noted the ileocecal valve. Right as I entered the rectum I had seen some ulcers but did not see any past that. Unfortunately, she also had a lot of retained fecal matter/vegetable matter; pictures taken. Once in the cecum I started to slowly withdraw the scope insufflating to look circumferentially at the lind starting in the cecum, up the ascending colon to the hepatic flexure, then down the transverse colon, splenic flexure, into the descending colon down in the sigmoid and then into the rectal vault. I took a biopsy of the cecum and the sigmoid. I then took 3 biopsies of the ulcers in the rectum. As I removed the scope, I took a picture of the internal hemorrhoids. The patient tolerated the procedure. She was recovered in endoscopy suite. Anesthesia Type IV sedation by SENIOR CENTER DIRECTOR Estimated Blood Loss Estimated blood loss (mL): scant Specimens/Packing Specimens Removed cecal bx sigmoid bx rectal bx BETY BROWER DO January 21, 2022 12:44
[2022-01-21 12:45] VITALS: BP 117/74
--- NOTE | 2022-01-21 12:45 | Endoscopy Discharge Instruct ---
Endo Procedure/Findings Findings 1.: Other Findings (Rectal ulcers) 2.: Internal Hemorrhoids Discharge Instructions - Activity: You might feel a little sleepy until tomorrow. This is due to the medicine you received to relax you. Until tomorrow, you should: NOT drive a car, operate machinery or power tools. NOT drink any alcoholic beverages. NOT make any important decisions or sign importortant papers. Do not return to work until tomorrow, unless otherwise instructed. Resume previous activities tomorrow. Diet: Start by taking liquids. If you tolerate liquids, advance to solid food. 1.: Colonoscopy in 1 year Notify Physician - If you experience excessive bleeding, unusual abdominal pain, fever, or chest pain, contact your doctor immediately. BETY BROWER DO January 21, 2022 12:45
[2022-01-21 12:48] VITALS: BP 113/74
[2022-01-21 12:50] VITALS: BP 110/57
--- NOTE | 2022-01-21 13:04 | Anesthesia-General Post-Op ---
MAC Patient Condition Mental Status/LOC: Same as Preop Cardiovascular: Satisfactory Nausea/Vomiting: Absent Respiratory: Satisfactory Pain: Controlled Complications: Absent Post Op Complications Complications None Follow Up Care/Instructions Patient Instructions None needed. Anesthesiology Discharge Order Discharge Order Patient is doing well, no complaints, stable vital signs, no apparent adverse anesthesia problems. No complications reported per nursing. PLACIDO MERIDA CRNA January 21, 2022 13:04
[2022-01-21 13:10] VITALS: BP 116/71
== END 2022-01-21 13:13 | disposition home or self-care (01) ==
LOC: ENDO 10:55
PROVIDERS: ATTEND Surgery
DX: K51.90 Ulcerative colitis, unspecified, without complications (principal); K62.5 Hemorrhage of anus and rectum; K64.8 Other hemorrhoids; E66.01 Morbid (severe) obesity due to excess calories; F17.290 Nicotine dependence, other tobacco product, uncomplicated; Z68.41 Body mass index [BMI] 40.0-44.9, adult; Z79.52 Long term (current) use of systemic steroids
CPT/HCPCS: 84703; 88305